=== PATIENT | female | born 2000 | race American Indian/Alaskan Native ===

== ENCOUNTER 2022-06-15 16:28 | Emergency (ER) | payer OTHER ==
[2022-06-15] MEDS ORDERED: IBUPROFEN 600 MG TAB PO ONE (20:39)
[2022-06-15] MEDS ORDERED: LIDOCAINE (1%) 10 MG/1 ML VIAL 20 ML MDV INFILTRATI ONE (20:39)
--- NOTE | 2022-06-15 22:21 | Emergency Department Report ---
- General Chief Complaint: Wound/Laceration Stated Complaint: LT HAND CUT Source: patient Mode of arrival: Ambulatory Limitations: No Limitations - History of Present Illness Initial Comments: Patient is a 21-year-old -[place] female with no past medical history who presents to the ED with complaint of acute onset painful bleeding dorsal left hand laceration after she accidentally cut her left hand with a box icer when trying to open the box that was full of choice about 6 hours ago. Patient states that the pain is constant and persistent and worse with any active range of motion of the left hand or fingers. Patient states that she is up-to-date with all her tetanus vaccination. Patient denies numbness and tingling or weakness of right hand, dizziness, syncope, nausea and vomiting or fall. -: hour(s) (6) Location: other (LEFT HAND ) Extremity Location: Left: Hand (Dorsal left hand laceration) Place: home Patient Tetanus UTD: Yes Context: accidental, sharp object use Associated Symptoms: pain. denies: loss of feeling/numbness, suspect foreign body present, unable to move injured part, weakness followed by dizziness, nausea/vomiting, fever - Related Data Previous Rx's Medication Instructions Recorded Last Taken Type Ibuprofen [Motrin] 600 mg PO Q8H PRN #30 tablet 06/15/22 Unknown Rx cephALEXin [Keflex] 500 mg PO Q8HR #30 cap 06/15/22 Unknown Rx Allergies Allergy/AdvReac Type Severity Reaction Status Date / Time No Known Allergies Allergy Unverified 06/15/22 17:43 ED Review of Systems ROS: Stated complaint: LT HAND CUT Other details as noted in HPI Constitutional: denies: chills, fever Eyes: denies: eye pain, eye discharge, vision change ENT: denies: ear pain, throat pain Respiratory: denies: cough, shortness of breath, wheezing Cardiovascular: denies: chest pain, palpitations Endocrine: no symptoms reported Gastrointestinal: denies: abdominal pain, nausea, diarrhea Genitourinary: denies: urgency, dysuria, discharge Musculoskeletal: arthralgia (Left hand pain due to a bleeding dorsal left hand laceration). denies: back pain, joint swelling Skin: other (Bleeding dorsal left hand laceration wound). denies: rash, lesions Neurological: denies: headache, weakness, paresthesias Psychiatric: denies: anxiety, depression Hematological/Lymphatic: denies: easy bleeding, easy bruising ED Past Medical Hx - Past Medical History Previous Medical History?: No - Surgical History Past Surgical History?: No - Medications Home Medications: Home Medications Medication Instructions Recorded Confirmed Last Taken Type Ibuprofen [Motrin] 600 mg PO Q8H PRN #30 tablet 06/15/22 Unknown Rx cephALEXin [Keflex] 500 mg PO Q8HR #30 cap 06/15/22 Unknown Rx ED Physical Exam - General Limitations: No Limitations General appearance: alert, in no apparent distress - Head Head exam: Present: atraumatic, normocephalic, normal inspection - Eye Eye exam: Present: normal appearance, PERRL, EOMI Pupils: Present: normal accommodation - ENT ENT exam: Present: normal exam, normal orophraynx, mucous membranes moist, TM's normal bilaterally, normal external ear exam - Neck Neck exam: Present: normal inspection, full ROM. Absent: tenderness - Respiratory Respiratory exam: Present: normal lung sounds bilaterally. Absent: respiratory distress, wheezes, rales, rhonchi, stridor, chest wall tenderness, accessory muscle use, decreased breath sounds, prolonged expiratory, other - Cardiovascular Cardiovascular Exam: Present: regular rate, normal rhythm, normal heart sounds. Absent: systolic murmur, diastolic murmur, rubs, gallop - GI/Abdominal GI/Abdominal exam: Present: soft, normal bowel sounds. Absent: tenderness, guarding, rebound, hyperactive bowel sounds, hypoactive bowel sounds, organomegaly, mass - Extremities Exam Extremities exam: Present: normal inspection, full ROM, tenderness (Palpable dorsal left hand tenderness due to a bleeding 4 cm laceration wound), normal capillary refill. Absent: pedal edema, joint swelling, calf tenderness - Back Exam Back exam: Present: normal inspection, full ROM. Absent: tenderness, CVA tenderness (R), CVA tenderness (L), muscle spasm, paraspinal tenderness, vertebral tenderness, rash noted - Neurological Exam Neurological exam: Present: alert, oriented X3, CN II-XII intact, normal gait, reflexes normal - Psychiatric Psychiatric exam: Present: normal affect, normal mood - Skin Skin exam: Present: warm, dry, intact, normal color, other (Bleeding 4 cm dorsal left hand laceration wound). Absent: rash ED Course Vital Signs 06/15/22 06/15/22 17:42 20:47 Temperature 98.5 F Pulse Rate 67 Respiratory 18 16 Rate Blood Pressure 119/69 [Left] O2 Sat by Pulse 99 Oximetry - Laceration /Wound Repair Left Distal Hand Wound Location: upper extremity (Dorsal left hand laceration wound) Wound Length (cm): 4 Wound's Depth, Shape: superficial, linear Wound Explored: contaminated Irrigated w/ Saline (ccs): 200 Betadine Prep?: Yes Anesthesia: 1% Lidocaine Volume Anesthetic (ccs): 5 Wound Debrided: extensive Wound Repaired With: sutures Suture Size/Type: 4:0, proline Number of Sutures: 9 Sterile Dressing Applied?: Yes Progress: The dorsal left hand laceration wound was cleaned extensively with normal saline and Betadine solutions. Lidocaine 1% solution was used as a local anesthetic. When anesthesia was fully achieved, the wound was then sutured per protocol using Prolene 4-0 sutures for a total of 9 sutures. Patient tolerated the procedure well. The wound was then dressed appropriately with sterile 4 x 4 gauze and Kerlix. Patient was discharged home on medication for pain and prophylactic antibiotic and advised to return to the ED immediately if symptoms get worse. ED Medical Decision Making - Medical Decision Making This is a 21-year-old -[place] female with no past medical history who presents to the ED with complaint of acute onset painful bleeding dorsal left hand laceration after she accidentally cut her left hand with a box icer when trying to open the box that was full of choice about 6 hours ago. Patient states that the pain is constant and persistent and worse with any active range of motion of the left hand or fingers. Patient states that she is up-to-date with all her tetanus vaccination. In the ED, patient is alert and oriented x3 and is not in any distress. Patient was treated for pain in the ED. The dorsal left hand laceration wound was cleaned extensively with normal saline and Betadine solutions. Lidocaine 1% solution was used as a local anesthetic. When anesthesia was fully achieved, the wound was then sutured per protocol using Prolene 4-0 sutures for a total of 9 sutures. Patient tolerated the procedure well. The wound was then dressed appropriately with sterile 4 x 4 gauze and Kerlix. Patient was discharged home on medication for pain and prophylactic antibiotic and advised to return to the ED immediately if symptoms get worse. Patient was also advised to follow-up with her primary care physician in 7 to 10 days for reevaluation. Patient was also advised to return to the ED or to her primary care physician in 12 to 14 days for suture removal. - Differential Diagnosis Hand laceration; hand puncture wound; hand injury; Critical care attestation.: If time is entered above; I have spent that time in minutes in the direct care of this critically ill patient, excluding procedure time. ED Disposition Clinical Impression: Laceration of left hand without complication, excluding fingers Qualifiers: Encounter type: initial encounter Qualified Code(s): S61.412A - Laceration without foreign body of left hand, initial encounter Puncture wound of left hand without complication Qualifiers: Encounter type: initial encounter Qualified Code(s): S61.432A - Puncture wound without foreign body of left hand, initial encounter Disposition: HOME / SELF CARE / HOMELESS Is pt being admited?: No Does the pt Need Aspirin: No Condition: Stable Instructions: Wound Infection, [id number], Puncture Wound, [id number], Laceration Care, Adult, [id number], Sutured Wound Care, [id number] Additional Instructions: Take medication with food, drink plenty of fluids, follow-up with your primary care physician in 7 to 10 days for reevaluation. Return to the ED immediately if symptoms get worse. Otherwise return to the ED or to your primary care physician in 12 to 14 days for suture removal. Prescriptions: cephALEXin [Keflex] 500 mg PO Q8HR #30 cap Ibuprofen [Motrin] 600 mg PO Q8H PRN #30 tablet PRN Reason: Pain Referrals: [facility] [Provider Group] - 7-10 days Time of Disposition: 22:24 Print Language: YORUBA
[2022-06-15 22:56] VITALS: BP 123/71
== END 2022-06-15 22:45 | disposition home or self-care (01) ==
LOC: ED 16:28
DX: S61.412A Laceration without foreign body of left hand, initial encounter (principal); S61.432A Puncture wound without foreign body of left hand, initial encounter; X58.XXXA Exposure to other specified factors, initial encounter; Y93.89 Activity, other specified; Y92.89 Other specified places as the place of occurrence of the external cause; Y99.8 Other external cause status
CPT/HCPCS: 99282

== ENCOUNTER 2022-06-29 09:16 | Emergency (ER) | payer OTHER ==
[2022-06-29 09:31] VITALS: BP 114/57
--- NOTE | 2022-06-29 11:51 | Emergency Department Report ---
Suture/Staple Removal - HPI Chief Complaint: Laceration/Recheck/Suture Stated Complaint: STICHES REMOVAL Time Seen by Provider: 06/29/22 11:34 When Sutures or [place] Placed: 11-14 Days Ago Wound Location: Left dorsal hand ED Review of Systems ROS: Stated complaint: STICHES REMOVAL Other details as noted in HPI Constitutional: denies: chills, fever Respiratory: denies: cough, shortness of breath, wheezing Cardiovascular: denies: chest pain, palpitations Skin: lesions Neurological: denies: headache, weakness, paresthesias Psychiatric: denies: anxiety, depression ED Past Medical Hx - Past Medical History Previous Medical History?: No - Surgical History Past Surgical History?: No - Medications Home Medications: Home Medications Medication Instructions Recorded Confirmed Last Taken Type Ibuprofen [Motrin] 600 mg PO Q8H PRN #30 tablet 06/15/22 Unknown Rx cephALEXin [Keflex] 500 mg PO Q8HR #30 cap 06/15/22 Unknown Rx Suture Removal Exam - Exam General: Vital signs noted. No distress. Alert and acting appropriately. Wound: No Pathologic Erythema, No Tenderness, No Drainage, No Pus, No Wound Dehiscence Other Systems: All other systems reviewed and are unremarkable. ED Course Vital Signs 06/29/22 09:29 Temperature 98.4 F Pulse Rate 59 L Respiratory 18 Rate Blood Pressure 114/57 [Left] O2 Sat by Pulse 99 Oximetry ED Recheck MDM - Core Measures AMI Core Measures Followed: Yes - Differential Diagnosis Wound Recheck, Suture/Staple Removal - Medical Decision Making 21-year-old female presents to the emergency room for suture removal. Vitals are stable and patient in no acute distress. 4 cm laceration to dorsal hand sutures x8, edges well approximated, no signs of infection. Sutures removed with forceps. Topical triple antibiotic ointment applied. Patient discharged home with wound care instructions and handout. Patient instructed to follow-up with a primary care provider if signs of infection. Patient discharged home stable. Critical care attestation.: If time is entered above; I have spent that time in minutes in the direct care of this critically ill patient, excluding procedure time. ED Disposition Clinical Impression: Visit for suture removal Laceration of left hand without complication, excluding fingers Qualifiers: Encounter type: subsequent encounter Qualified Code(s): S61.412D - Laceration without foreign body of left hand, subsequent encounter Disposition: HOME / SELF CARE / HOMELESS Is pt being admited?: No Condition: Stable Instructions: Wound Care, Adult Referrals: KEANU MILLER MD [Staff Physician] - 3-5 Days [facility] [Provider Group] - 3-5 Days Forms: Work/School Release Form(ED) Time of Disposition: 11:50
[2022-06-29] MEDS ORDERED: NEOMY 3.5 MG/BACIT 400 UNITS/POLY B 5000 UNITS/GM OINT PACKET TP ONE (12:05)
== END 2022-06-29 12:15 | disposition home or self-care (01) ==
LOC: ED 09:16
DX: S61.412D Laceration without foreign body of left hand, subsequent encounter (principal); Z79.899 Other long term (current) drug therapy; X58.XXXD Exposure to other specified factors, subsequent encounter
CPT/HCPCS: 99282

== ENCOUNTER 2022-07-18 11:59 | Emergency (ER) | payer OTHER ==
[2022-07-18 13:14] VITALS: BP 121/66
--- NOTE | 2022-07-18 13:43 | XRay Report ---
LEFT HAND 2 VIEW(S) INDICATION / CLINICAL INFORMATION: wound, pain and swelling COMPARISON: None available. FINDINGS: BONES / JOINT(S): No acute fracture or subluxation. No significant arthritis. 4 mm negative ulnar homer iance. SOFT TISSUES: Mild soft tissue swelling at the webspace between the thumb and index finger. ADDITIONAL FINDINGS: None. IMPRESSION: 1. Mild soft tissue swelling at the web space between the thumb and index finger. Signer Name: Chris Vera MD Signed: 07/18/2022 1:38 PM Workstation Name: [email or web address]
--- NOTE | 2022-07-18 13:58 | Emergency Department Report ---
- General Chief complaint: Laceration/Recheck/Suture Stated complaint: INFECTED CUT Time Seen by Provider: 07/18/22 13:12 Source: patient Mode of arrival: Ambulatory Limitations: No Limitations - History of Present Illness Initial comments: 21-year-old black female with no past medical history presents to the emergency department for evaluation of right hand pain and swelling. She states that she had sutures removed from area in question on 06/29 and since then she has developed pain, redness, tenderness, and clear drainage from area. She states that it has gotten significantly worse over the last 2 days. She denies fever. MD complaint: other (Erythema edema) Tetanus Up to Date: yes Location: L hand Severity: mild Severity scale (0 -10): 2 Quality: aching Consistency: constant Worsens with: movement Associated symptoms: denies other symptoms Treatments Prior to Arrival: none - Related Data Previous Rx's Medication Instructions Recorded Last Taken Type Ibuprofen [Motrin] 600 mg PO Q8H PRN #30 tablet 06/15/22 Unknown Rx cephALEXin [Keflex] 500 mg PO Q8HR #30 cap 06/15/22 Unknown Rx Naproxen [Naprosyn] 500 mg PO BID #14 tab 07/18/22 Unknown Rx cephALEXin [Keflex] 500 mg PO Q12HR #14 cap 07/18/22 Unknown Rx Allergies Allergy/AdvReac Type Severity Reaction Status Date / Time No Known Allergies Allergy Verified 07/18/22 13:14 Abscess Boil HPI - HPI Chief Complaint: Laceration/Recheck/Suture Stated Complaint: INFECTED CUT Time Seen by Provider: 07/18/22 13:12 Duration: 2 Days Location: Upper Extremity History: Yes Pain, No Fever, No Purulent Drainage, No Numbness, No Foreign Body, No Previous History, No Insect Bite Home Medications: Previous Rx's Medication Instructions Recorded Last Taken Type Ibuprofen [Motrin] 600 mg PO Q8H PRN #30 tablet 06/15/22 Unknown Rx cephALEXin [Keflex] 500 mg PO Q8HR #30 cap 06/15/22 Unknown Rx Naproxen [Naprosyn] 500 mg PO BID #14 tab 07/18/22 Unknown Rx cephALEXin [Keflex] 500 mg PO Q12HR #14 cap 07/18/22 Unknown Rx Allergies/Adverse Reactions: Allergies Allergy/AdvReac Type Severity Reaction Status Date / Time No Known Allergies Allergy Verified 07/18/22 13:14 ED Review of Systems ROS: Stated complaint: INFECTED CUT Other details as noted in HPI Comment: All other systems reviewed and negative Constitutional: denies: chills, fever Respiratory: denies: shortness of breath Cardiovascular: denies: chest pain Gastrointestinal: denies: abdominal pain, nausea, vomiting Musculoskeletal: denies: back pain Neurological: denies: headache, weakness ED Past Medical Hx - Medications Home Medications: Home Medications Medication Instructions Recorded Confirmed Last Taken Type Ibuprofen [Motrin] 600 mg PO Q8H PRN #30 tablet 06/15/22 Unknown Rx cephALEXin [Keflex] 500 mg PO Q8HR #30 cap 06/15/22 Unknown Rx Naproxen [Naprosyn] 500 mg PO BID #14 tab 07/18/22 Unknown Rx cephALEXin [Keflex] 500 mg PO Q12HR #14 cap 07/18/22 Unknown Rx ED Physical Exam - General Limitations: No Limitations General appearance: alert, in no apparent distress - Head Head exam: Present: atraumatic, normocephalic - Eye Eye exam: Present: normal appearance. Absent: conjunctival injection - Neck Neck exam: Present: normal inspection. Absent: tenderness, lymphadenopathy - Respiratory Respiratory exam: Absent: respiratory distress - Cardiovascular Cardiovascular Exam: Present: regular rate - GI/Abdominal GI/Abdominal exam: Present: soft. Absent: distended, tenderness - Expanded Upper Extremity Exam Left Hand Wrist exam: Present: tenderness, swelling, erythema, other. Absent: abrasion, laceration, ecchymosis Hand L/R Back: 1 - Noted to have healed sutured area with erythema, edema, and tenderness to area. No purulent drainage noted. Vascular: Present: normal capillary refill, radial pulse. Absent: vascular compromise, Pallo - Back Exam Back exam: Present: normal inspection. Absent: CVA tenderness (R), CVA tenderness (L) - Neurological Exam Neurological exam: Present: alert, oriented X3, normal gait - Psychiatric Psychiatric exam: Present: normal affect, normal mood - Skin Skin exam: Present: warm, dry, erythema ED Course Vital Signs 07/18/22 13:12 Temperature 98.6 F Pulse Rate 74 Respiratory 16 Rate Blood Pressure 121/66 [Right] O2 Sat by Pulse 100 Oximetry ED Medical Decision Making - Radiology Data Left hand xray: FINDINGS: BONES / JOINT(S): No acute fracture or subluxation. No significant arthritis. 4 mm negative ulnar variance. SOFT TISSUES: Mild soft tissue swelling at the webspace between the thumb and index finger. ADDITIONAL FINDINGS: None. IMPRESSION: 1. Mild soft tissue swelling at the web space between the thumb and index fin falguni. - Medical Decision Making 21-year-old black female with no past medical history presents to the emergency department for evaluation of right hand pain and swelling. She states that she had sutures removed from area in question on 06/29 and since then she has develo ped pain, redness, tenderness, and clear drainage from area. She states that it has gotten significantly worse over the last 2 days. She denies fever. Left hand x-ray without any acute abnormalities noted. Physical exam consistent with cellulitis of left hand. Patient will be discharged home with 7-day course of Keflex and naproxen to take as directed. She is advised to follow-up with her primary care provider if no improvement or worsening symptoms or return to the emergency department as needed. She verbalizes understanding of and agreement with plan of care. Critical care attestation.: If time is entered above; I have spent that time in minutes in the direct care of this critically ill patient, excluding procedure time. ED Disposition Clinical Impression: Cellulitis Qualifiers: Site of cellulitis: extremity Site of cellulitis of extremity: upper extremity Laterality: left Qualified Code(s): L03.114 - Cellulitis of left upper limb Disposition: HOME / SELF CARE / HOMELESS Is pt being admited?: No Does the pt Need Aspirin: No Condition: Stable Instructions: Cellulitis, Adult, [id number] Additional Instructions: Take medications as prescribed. Follow-up with your primary care provider if no improvement or worsening symptoms. Turn to the emergency department if you develop fever or any concerning symptoms. Prescriptions: cephALEXin [Keflex] 500 mg PO Q12HR #14 cap Naproxen [Naprosyn] 500 mg PO BID #14 tab Referrals: KEANU MILLER MD [Primary Care Provider] - 3-5 Days Forms: Work/School Release Form(ED) Time of Disposition: 13:57
== END 2022-07-18 14:43 | disposition home or self-care (01) ==
LOC: ED 11:59
DX: L03.114 Cellulitis of left upper limb (principal)
CPT/HCPCS: 99283

== ENCOUNTER 2022-07-20 02:51 | Emergency (ER) | payer OTHER ==
--- NOTE | 2022-07-20 10:07 | Emergency Department Report ---
Upper Extremity - HPI Chief Complaint: Extremity Injury, Upper Stated Complaint: INFECTED HAND Time Seen by Provider: 07/20/22 09:54 Upper Extremity: Left Hand Occurred When: 2 Days Severity: mild Symptoms: Yes Swelling, No Pain with Movement, No Deformity, No Limited Range of Movement, No Numbness, No Weakness, No Bruising/Ecchymosis, No Laceration or Abrasion Other History: 22-year-old female presents to the ED complaining left hand swelling , erythema, and tenderness. Patient has a laceration repaired on 06/19 and suture removed on the . She states that she had a suture remover that she has continued to have tenderness to her left hand. Was seen and evaluated 2 days ago x-rays show no abnormality or indication for infection. Patient is able to move extremity without any difficulty mild edema noted in between the dorsal and left index of the finger. He is currently taking Keflex and Naprosyn for pain. Patient states pain is a currently 1 out of 10 at present time. Patient is alert and oriented x3 no acute distress noted ED Review of Systems ROS: Stated complaint: INFECTED HAND Other details as noted in HPI Constitutional: denies: chills, fever Eyes: denies: eye pain, eye discharge, vision change ENT: denies: ear pain, throat pain Respiratory: denies: cough, shortness of breath, wheezing Cardiovascular: denies: chest pain, palpitations Endocrine: no symptoms reported Gastrointestinal: denies: abdominal pain, nausea, diarrhea Genitourinary: denies: urgency, dysuria, discharge Musculoskeletal: denies: back pain, joint swelling, arthralgia Skin: denies: rash, lesions Neurological: denies: headache, weakness, paresthesias Psychiatric: denies: anxiety, depression Hematological/Lymphatic: denies: easy bleeding, easy bruising ED Past Medical Hx - Social History Smoking Status: Never Smoker Substance Use Type: None - Medications Home Medications: Home Medications Medication Instructions Recorded Confirmed Last Taken Type Ibuprofen [Motrin] 600 mg PO Q8H PRN #30 tablet 06/15/22 Unknown Rx cephALEXin [Keflex] 500 mg PO Q8HR #30 cap 06/15/22 Unknown Rx Naproxen [Naprosyn] 500 mg PO BID #14 tab 07/18/22 Unknown Rx cephALEXin [Keflex] 500 mg PO Q12HR #14 cap 07/18/22 Unknown Rx Upper Extremity Exam - Exam General: Vital signs noted. No distress. Alert and acting appropriately. Head and Torso: No HEENT Abnormality, No Neck Tenderness, No Chest/Lungs Abnormality, No Abdominal Tenderness, No Back Tenderness Shoulder Exam: Yes Normal Range of Motion in Shoulder, No Shoulder Tenderness, No Clavicle Tenderness, No Shoulder Deformity, No AC Joint Tenderness Arm Exam: No Arm/Humerus Tenderness, No Arm Deformity Elbow: No Elbow Tenderness, No Normal Range of Motion in Elbow, No Elbow Deformity Forearm: No Forearm Tenderness, No Forearm Deformity, No Pain with Pronation, No Pain with Supination Wrist: Yes Normal ROM in Wrist, No Wrist Tenderness, No Wrist Deformity, No Snuffbox Tenderness, No Pain with Axial Thumb Compression Hand: Yes Normal ROM in Digit(s), No Hand Tenderness, No Hand Deformity, No Digit Tenderness, No Digit(s) Deformity, No Tendon Dysfunction CMS Exam: No Broken Skin, No Normal Distal Pulses, No Normal Capillary Refill, No Normal Distal Sensation ED Course Vital Signs 07/20/22 02:54 Temperature 98.1 F Pulse Rate 56 L Respiratory 18 Rate Blood Pressure 124/72 O2 Sat by Pulse 98 Oximetry ED Medical Decision Making - Medical Decision Making 22-year-old female presents to the ED complaining left hand swelling , erythema, and tenderness. Patient has a laceration repaired on 06/19 and suture removed on the . She states that she had a suture remover that she has continued to have tenderness to her left hand. Was seen and evaluated 2 days ago x-rays show no abnormality or indication for infection. Physical exam patient is able to move extremity without any difficulty mild edema noted in between the dorsal and left index of the finger. He is currently taking Keflex and Naprosyn for pain. Patient states pain is a currently 1 out of 10 at present time. Patient is alert and oriented x3 no acute distress noted. Rechecked the patient is resting quietly , comfortable and feeling better. I discussed the results of diagnostic study, my clinical impression and the plan for further treatment with the patient. Patient agrees with plan and discharge at this present time. All question addressed. I have given the patient instruction regarding a diagnosis ,expectation ,follow- up and return precaution. I explained to the patient that emergent condition may arise and to return to the ED for new worsen and any new persisting condition. I have explained the importance of following up with the primary care physician or referral physician listed below has instructed. The patient verbalized understanding of discharge instruction. Critical care attestation.: If time is entered above; I have spent that time in minutes in the direct care of this critically ill patient, excluding procedure time. ED Disposition Clinical Impression: Cellulitis Qualifiers: Site of cellulitis: unspecified site Qualified Code(s): L03.90 - Cellulitis, unspecified Disposition: 01 HOME / SELF CARE / HOMELESS Is pt being admited?: No Condition: Stable Instructions: Cellulitis, Adult, [id number] Additional Instructions: Take medication as prescribed Follow-up with hand specialist of your choice if no improvement Continue to take antibiotic as prescribed Referrals: PRIMARY CARE, [Primary Care Provider] - 3-5 Days [facility] [Outside] - 3-5 Days [facility] [Provider Group] - 3-5 Days Forms: Work/School Release Form(ED) Time of Disposition: 10:06
[2022-07-20 10:31] VITALS: BP 118/86
== END 2022-07-20 10:41 | disposition home or self-care (01) ==
LOC: ED 02:51
DX: L03.114 Cellulitis of left upper limb (principal)
CPT/HCPCS: 99282